=== PATIENT | male | born 1935 | race Caucasian/White ===

== ENCOUNTER 2017-09-24 17:05 | Inpatient (IN) | payer OTHER ==
[~2017-09-24] VITALS: Ht 152.4 cm; Wt 87.5 kg
[~2017-09-24 17:05] MED LIST: AMITRIPTYLINE H10 M3 PO; ASPIRIN325 PO; CARAFATE 1 GM TA1 G1 PO; COLACE100 MG PO; COZAAR 25 MG TA25 M2 PO; CYMBALTA60 MG PO; GABAPENTIN 100100 MG PO; HYDROCHLOROTHIA25 M2 PO; LEVAQUIN 500 M500 M2 PO; OMEPRAZOLE40 MG PO; SIMVASTATIN40 MG PO; ZANTAC 150MG T150 MG PO
[2017-09-24 17:09] VITALS: BP 156/86
[2017-09-24] MEDS ORDERED: VITAMIN D1000 UNI1 PO (17:19)
[2017-09-24] MEDS ORDERED: CALCIUM500 MG PO (17:19)
[2017-09-24] MEDS ORDERED: UNICOMPLEX M TA1 TA1 PO (17:19)
[2017-09-24] MEDS ORDERED: PROTONIX 20 MG20 M1 PO (17:19)
[2017-09-24] MEDS ORDERED: POTASSIUM99 M1 PO (17:19)
[2017-09-24] MEDS ORDERED: NORVASC5 MG PO (17:20)
[2017-09-24 17:35] LABS: ABSOLUTE BASOPHILS 0.1 thou/uL (0.0-0.2); ABSOLUTE EOSINOPHILS 0.1 thou/uL (0.0-0.7); ABSOLUTE LYMPHOCYTES 1.4 thou/uL (0.8-5.3); ABSOLUTE MONOCYTES 0.9 thou/uL (0.0-1.2); ABSOLUTE NEUTROPHILS 6.7 thou/uL (1.6-8.1); HEMATOCRIT 38.7 % (42.0-52.0); HEMOGLOBIN 13.3 gm/dL (14.0-18.0); LYMPHOCYTES 15.5 %; MCH 29.3 pg (26.0-34.0); MCHC 34.4 g/dL (28.0-37.0); MCV 85.1 fL (80.0-100.0); MONOCYTES 10.3 %; NUCLEATED RBCS 0 /100WBC; PLATELET COUNT* 186 thou/uL (150-400); POLYS 72.2 %; RBC 4.54 mil/uL (4.50-6.00); RDW-CV 14.6 % (10.5-14.5); WBC 9.2 thou/uL (4.0-11.0)
[2017-09-24 17:45] LABS: CALCIUM 9.9 mg/dL (8.5-10.1); CREATININE 1.9 mg/dL (0.6-1.3); POTASSIUM 3.5 mmol/L (3.5-5.1)
[2017-09-24 17:55] LABS: ALBUMIN 3.9 g/dL (3.4-5.0); TOTAL BILIRUBIN 0.6 mg/dL (<0.1-1.0); TROPONIN-I LEVEL 0.51 ng/mL (<0.06)
[2017-09-24 19:14] LABS: APTT 23.4 Seconds (25.0-31.3); INR 1.1; PROTIME 10.5 Seconds (9.20-11.50)
[2017-09-24 21:04] VITALS: BP 170/87
[2017-09-24 21:31] VITALS: BP 182/90
[2017-09-25] VITALS (19 sets, daily range): BP systolic 101–161; BP diastolic 48–89
--- NOTE | 2017-09-25 01:51 | NUR ---
ASSUMED CARE OF PT AT 2114. PT IS ALERT AND ORIENTED. PERRLA. GAIT IS WEAK AND UNSTEADY. PT REPORTED ONGOING CHEST PAIN EVEN THOUGH HEPARIN WAS INFUSING AND PT WAS GIVEN FENTANYL. PT REPORTED SOME RELIEF WITH NITRO. SO A NITRO PATCH WAS STARTED. PT HAS NOT COMPLAINED OF CHEST PAIN SINCE THEN. PT IS IN SINUS RYTHM ON THE TELEMETRY. PT IS RESTING COMFORTABLY IN BED. PT IS NPO FOR CATH PRECEDURE.
[2017-09-25 05:03] LABS: HEMATOCRIT 34.3 % (42.0-52.0); HEMOGLOBIN 11.7 gm/dL (14.0-18.0); MCV 85.4 fL (80.0-100.0); MPV 8.1 fl. (7.2-11.1); RBC 4.02 mil/uL (4.50-6.00); RDW-CV 14.5 % (10.5-14.5); WBC 6.4 thou/uL (4.0-11.0)
[2017-09-25 06:48] LABS: CHOLESTEROL 131 mg/dL (<200); HDL CHOLESTEROL 44 mg/dL (>40); LDL CHOLESTEROL 65 mg/dL (<100); TRIGLYCERIDE 111 mg/dL (<150); VLDL 22 mg/dL (<40)
[2017-09-25 06:55] LABS: SERUM ASSESSMENT Clear
--- NOTE | 2017-09-25 10:00 | NUR ---
RECEIVED PT CARE 0700. PATIENT IS ALERT AND ORIENTED X4. VSS. GRAIN SPOUTER TRACING SR WITH BBB. PATIENT DENIES ANY SOA. O2 SAT 98% ON 2L NC. C/O CHEST PAIN/PRESSURE UPON ASSESSMENT. PRN PAIN MEDICATION GIVEN WITH PARTIAL RELIEF. PLANS TO TAKE PATIENT TO THE HISTOLOGY MANAGER TODAY PER DR NOEL. AM ASSESSMENT CHARTED. MEDS PER MAR. PATIENT VOIDING PER URINAL. UP WITH ASSIST X1 IN ROOM WITH BATHROOM PRIVILEDGES. GAIT IS SLIGHTLY UNSTEADY. CONSENT SIGNED AND ON FRONT OF CHART FOR CARDIAC CATH. HEPARIN GTT INFUSING PER PROTOCOL AND NS INFUSING PRE CATH. CALL LIGHT WITHIN REACH. WILL CONTINUE TO MONITOR.
--- NOTE | 2017-09-25 11:30 | EKG ---
[place] [address] ELECTROCARDIOGRAM REPORT Name: VERA NIELSEN Room: [address] IN [facility]#: [id number] Admission: 09/24/17 Attend Phys: Ezekiel Cano MD Discharge: Date of : 35 Report #: [id number] THIS REPORT FOR: //name// [facility] ED Test Date: 2017-09-24 Test Time: 17:11:50 Pat Name: VERA NIELSEN Department: Room: Gender: M Student Union Consultant: Martine MCKEE : 1935 Requested By: Rah Melendez Order Number: [id number] MD: Veto Mai Measurements Intervals [place] Rate: 89 P: 49 TN: 196 QRS: -40 QRSD: 153 T: 52 QT: 409 QTc: 498 Interpretive Statements Sinus rhythm RBBB and LAFB Probable left ventricular hypertrophy Compared to ECG 03/09/2017 06:18:33 RIGHT BUNDLE BRANCH BLOCK now seen Prolonged QT interval no longer present Electronically Signed On 09-25-2017 11:30:29 CDT by Veto Mai [email or web address] <ELECTRONICALLY SIGNED> By: Veto Mai MD, FACC 09/25/17 1130 1711 1711 Veto Mai MD, [facility] /EPI
--- NOTE | 2017-09-25 11:38 | EKG ---
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
[2017-09-25] MEDS ORDERED: VITAMINC500 PO (12:20)
[2017-09-25] MEDS ORDERED: VITAMIN B-121000 MC3 PO (12:21)
[2017-09-25] MEDS ORDERED: COZAAR100 MG PO (12:49)
--- NOTE | 2017-09-25 15:14 | CARD ---
[address] [address] CARDIAC CATH REPORT Name: VERA NIELSEN Room: [address] IN [facility].#: [id number] Admission: 09/24/17 Attend Phys: Ezekiel Cano MD Discharge: Date of : 35 Report #: [id number] THIS REPORT FOR: //name// APPROVED REPORT Study performed: 09/25/2017 09:44:46 Patient Details Patient Status: In-Patient Room #: The patient is a 81 year-old male Event Personnel Anali Alatorre, Joyce Brady, Tana Monahan RN, Veto Mai Echo Tech Procedures Performed Art Access - R radial artery Left Heart Cath w/or w/o Coronaries [id number] [facility] Indication Abnormal ECG, Non-STEMI , Chest pain Risk Factors Hypercholesterolemia, Hypertension Previous Procedures/Diagnoses Previous CVA Procedure Narrative The patient was brought urgently to the Cardiac Catheterization Laboratory and was prepped and draped in a sterile manner. The right wrist was infiltrated with 2% Lidocaine subcutaneous anesthesia. A Slender Glidesheath sheath was inserted into the right radial artery. Coronary angiography was performed using coronary diagnostic catheters. The right coronary system was accessed and visualized with a Diagnostic catheter. The left coronary system was accessed and visualized with a Diagnostic catheter. The left ventricle was accessed and visualized with a Diagnostic catheter. Left ventricular/Aortic Valve gradient assessed via catheter pullback. Left ventriculogram was performed in SIMPSON projection. Closure device was deployed with a 6 Fr Vasc-Band Lng 27cm. The patient tolerated the procedure well and there were no complications associated with the procedure. There was no hematoma[place] [address] CARDIAC CATH REPORT Name: VERA NIELSEN Room: [address]#: [id number] Admission: 09/24/17 Attend Phys: Ezekiel Cano MD Discharge: Date of : 35 Report #: [id number] Sedation start time: 1035 Case end Time: 1106 Versed 2 mg Fluoro Time: 3.8 minutes Dose: 750.25 mGy Contrast Type and Amount: Visipaque 110 ml [place] Artery Percent Stenosis Left Main: 30 % Prox LAD: 0 % Mid/Distal LAD: 0 % Circumflex: 30 % RCA: 30 % Ramus: % Left Ventriculography The left ventricle is normal in size with normal contractility. The left ventricular ejection fraction is estimated to be 60-65%. Left ventricular wall motion abnormalities are not present. There is no mitral insufficiency. Hemodynamics The aortic pressure is 106/58 mmHg with a mean of 78 mmHg. The left ventricular end diastolic pressure is 5 mmHg. There was no gradient across the aortic valve upon pullback. Pullback from the left ventricle to the aorta revealed no gradient across the aortic valve. Conclusion 1. Mild cad 2. normal LV function Recommendations [facility] <ELECTRONICALLY SIGNED> By: Veto Mai MD, FACC 09/25/17 1514 1514 1514Dyonis Mai MD, FAC /INF
--- NOTE | 2017-09-25 19:17 | NUR ---
PATIENT PROGRESSING TOWARDS GOALS. POST CARDIAC CATH VITAL SIGNS STABLE. PATIENT VOIDING PER URINAL. UP WITH STANDBY ASSIST IN ROOM. HE IS TOLERATING HIS DIET WELL WITHOUT NAUSEA OR VOMITING. PLANNING FOR DC TOMORROW. HOURLY ROUNDING CHARTED. CALL LIGHT WITHIN REACH. WILL CONTINUE TO MONITOR.
--- NOTE | 2017-09-25 23:25 | NUR ---
ASSUMED CARE OF PT AT 1900. PT IS ALERT AND ORIENTED, VSS. PERRLA. NO COMPLAINTS OF PAIN. PT DENIES CHEST PAIN. PT IS IN SINUS RYTHM ON THE TELEMETRY. PT IS RESTING COMFORTABLY IN BED. RESPIRATIONS ARE EVEN AND NONLABORED. WILL CONTINUE TO MONITOR PT.
[2017-09-26 00:15] VITALS: BP 131/62
[2017-09-26 04:00] VITALS: BP 134/80
[2017-09-26 08:00] VITALS: BP 177/98
[2017-09-26] MEDS ORDERED: NITROGLYCERIN0.4 MG SUBLING (09:15)
[2017-09-26 12:14] VITALS: BP 165/83
[2017-09-26] MEDS ORDERED: TYLENOL325 MG PO (14:23)
--- NOTE | 2017-09-26 15:17 | NUR ---
PT DISCHARGED AT 1445 TO HOME. PT TRANSPORTED BY WHEELCHAIR ACCOMPANIED BY NURSING STAFF. PT'S SPOUSE PICKED UP. BELONGINGS ALL SENT WITH PATIENT. DISCHARGE PAPERWORK GONE OVER WITH PATIENT IN DETAIL. ASSESSMENT CHARTED. VSS THROUGHOUT THE SHIFT. HEADACHE PAIN RELIEVED WITH PRN PAIN MEDICATION.
--- NOTE | 2017-09-27 18:03 | CON ---
[address] [address] CONSULTATION Name: GIAVERA H Room: [address] IN ..#: [id number] Admission: 09/24/17 Attend Phys: Ezekiel Cano MD Discharge: 09/26/17 Date of : 35 Report #: [id number] THIS REPORT FOR: //name// CC: Ezekiel Johnston MD DATE OF SERVICE: 09/25/2017 HISTORY OF PRESENT ILLNESS: The patient is an 81-year-old white male who I was asked to see in the hospital today after he complained of chest pain. The patient states he had previous stroke affecting his left side. He was admitted to [facility] years ago as well as [facility]. He apparently did have heart catheterization in early at [facility] and showed no significant coronary artery disease. He had a treadmill test at [facility] years ago. This past June he actually underwent knee replacement at [facility] in [facility], which he tolerated well. He was actually admitted here to [facility] in February 2017 with chest pain. He underwent a nuclear stress test last February here at [facility]. He did complain of chest pain during Lexiscan infusion. Perfusion imaging showed no ischemia. There is diaphragmatic attenuation of the inferior wall, felt to be a low-risk study. Medical therapy was recommended. The patient states he did well until the past few days. He has been having intermittent chest pain. It is not necessarily related to exertion or meals. It goes into his left arm. It can make him short of breath, diaphoretic, but no nausea. It is not related to food. He has had a cough, but no fever. The pain is not related to coughing. He denies rash on his chest. He does get short of breath with exertion. He notes occasional fluttering, but no syncope. His finally brought him to the hospital last night. He was admitted for further evaluation and treatment. PAST MEDICAL HISTORY: Significant for multiple procedures including obtaining a PFO closure device at [facility] following his stroke. He has had DVT and had an IVC filter placed. He has had previous cholecystectomy, prostate surgery here at [facility], hernia repair, ankle surgery. He has had an EGD, carpal tunnel surgery, colonoscopy at [place]. He had a blood clot in his right leg in 2016. CURRENT MEDICATIONS: Include aspirin, Cymbalta, Neurontin, Protonix, ranitidine, simvastatin, sucralfate, hydrochlorothiazide, amlodipine. ALLERGIES: He has no known drug allergies. He does use CPAP. FAMILY HISTORY: His father had heart disease. SOCIAL HISTORY: He is , lives with his in [place]. 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 [place] [address] CONSULTATION Name: VERA NIELSEN Room: [address]#: [id number] Admission: 09/24/17 Attend Phys: Ezekiel Cano MD Discharge: 09/26/17 Date of : 35 Report #: [id number] REVIEW OF SYSTEMS: He has had no history of stroke. He has had a history of gastroesophageal reflux. No liver disease. He has had kidney stones. No cancer, no psychiatric illness. PHYSICAL EXAMINATION: GENERAL: Revealed an elderly male in no distress. VITAL SIGNS: He had a blood pressure of 140/80, pulse 60. He is afebrile. HEENT: He was anicteric. Conjunctivae pink. Mucous membranes moist. NECK: Veins nondistended. Right carotid bruit was heard. CHEST: Clear to auscultation. CARDIOVASCULAR: Regular rate and rhythm. No significant murmur. ABDOMEN: Soft, nontender, no masses were palpated. EXTREMITIES: Had no edema. Dorsalis pedis pulse 2+ bilaterally. SKIN: Warm, dry. NEUROLOGIC: Nonfocal. RADIOLOGICAL DATA: ECG shows a sinus rhythm, leftward axis, nonspecific ST-segment changes. He had previous workup in the Emergency Room that included a portable chest x-ray that showed normal heart size, clear lung gant. He had a V/Q scan of the lungs done last night that showed low probability for pulmonary embolus. Carotid MRA was done last February that showed normal common carotid, normal right carotid bifurcation, plaque in the left carotid. LAB WORK: Sodium 140, BUN 31, creatinine 1.9. His troponin was 0.51 on admission. This morning is up to 0.62. His cholesterol 131, LDL 65. White blood cell count 6.4, hemoglobin 11.4. IMPRESSION AND RECOMMENDATIONS: 1. Non-ST elevation myocardial infarction. Recommend cardiac catheterization. 2. Hypertension. The patient is on a diuretic and calcium jesus. 3. Hyperlipidemia. The patient is on a statin drug. 4. Previous stroke. The patient has had a PFO closure in the past, transcatheter. He currently has a closure device in place. 5. History of deep venous thrombosis. The patient has a filter in place. 6. Sleep apnea. The patient uses CPAP. 7. Recent knee surgery. 8. History of reflux. <ELECTRONICALLY SIGNED> By: Veto Mai MD, [facility] 09/27/17 2024 0912 1339David Louise Mai MD, [facility] /nt
== END 2017-09-26 14:45 | disposition still patient (30) | DRG 281 ==
LOC: M.ERS 17:05 → M.TBA-ER 18:28 → M.2W 20:03
PROVIDERS: Emergency Medicine Emergency Medical Services; ADMIT Internal Medicine
DX: I21.4 Non-ST elevation (NSTEMI) myocardial infarction (principal); I48.92 Unspecified atrial flutter; D68.59 Other primary thrombophilia; E78.5 Hyperlipidemia, unspecified; G40.909 Epilepsy, unspecified, not intractable, without status epilepticus; M47.896 Other spondylosis, lumbar region; K21.9 Gastro-esophageal reflux disease without esophagitis; I25.10 Atherosclerotic heart disease of native coronary artery without angina pectoris; N18.3 Chronic kidney disease, stage 3 (moderate); I12.9 Hypertensive chronic kidney disease with stage 1 through stage 4 chronic kidney disease, or unspecified chronic kidney disease; N40.0 Benign prostatic hyperplasia without lower urinary tract symptoms; I65.22 Occlusion and stenosis of left carotid artery; Z79.82 Long term (current) use of aspirin; Z86.73 Personal history of transient ischemic attack (TIA), and cerebral infarction without residual deficits; Z87.442 Personal history of urinary calculi; Z90.49 Acquired absence of other specified parts of digestive tract; Z95.828 Presence of other vascular implants and grafts; Z82.49 Family history of ischemic heart disease and other diseases of the circulatory system; Z86.718 Personal history of other venous thrombosis and embolism; Z79.899 Other long term (current) drug therapy

== ENCOUNTER 2021-05-15 09:12 | Emergency (ER) | payer OTHER ==
[~2021-05-15] VITALS: Ht 182.9 cm; Wt 87.5 kg
[~2021-05-15 09:12] MED LIST changes: +CALCIUM500 MG PO; +COZAAR100 MG PO; +NITROGLYCERIN0.4 MG SUBLING; +NORVASC5 MG PO; +POTASSIUM99 M1 PO; +PROTONIX 20 MG20 M1 PO; +TYLENOL325 MG PO; +UNICOMPLEX M TA1 TA1 PO; +VITAMIN B-121000 MC3 PO; +VITAMIN D1000 UNI1 PO; +VITAMINC500 PO
[2021-05-15] MEDS ORDERED: TRAZODONE HCL100 MG PO ×2 (22:38)
== END 2021-05-15 10:15 | disposition left against medical advice (07) ==
LOC: M.ERS 09:12
DX: R07.89 Other chest pain (principal); Z53.21 Procedure and treatment not carried out due to patient leaving prior to being seen by health care provider

== ENCOUNTER 2021-05-15 15:59 | Observation (INO) | payer OTHER ==
[~2021-05-15] VITALS: Ht 182.9 cm; Wt 88.0 kg
[2021-05-15 16:00] VITALS: BP 189/109
--- NOTE | 2021-05-15 16:31 | EKG ---
[place] [address] ELECTROCARDIOGRAM REPORT Name: VEAR NIELSEN Room: [facility]#: [id number] Admission: 05/15/21 Attend Phys: Discharge: Date of : 35 Date of Service: 05/15/21 0918 Report #: [id number] THIS REPORT FOR: //name// [facility] ED Test Date: 2021-05-15 Test Time: 09:18:57 Pat Name: VERA NIELSEN Department: Room: Gender: Service Technician: : 1935 Requested By: Mina Martinez Order Number: [id number] MD: Veto Mai Measurements Intervals [place] Rate: 76 P: -24 MI: 109 QRS: -73 QRSD: 160 T: 104 QT: 456 QTc: 513 Interpretive Statements A-V dual-paced rhythm with some inhibition No further analysis attempted due to paced rhythm Compared to ECG 09/25/2017 08:54:31 Sinus rhythm no longer present paced rhytm is now noted present Electronically Signed On 05-15-2021 16:30:48 ARCHIVIST ECONOMIC HISTORY by Veto Mai [email or web address] <ELECTRONICALLY SIGNED> By: Veto Mai MD, [facility] 05/15/21 1630 0918 7 Veto Mai MD, [facility] /EPI
[2021-05-15 16:32] LABS: ABSOLUTE EOSINOPHILS 0.1 thou/uL (0.0-0.7); ABSOLUTE LYMPHOCYTES 1.3 thou/uL (0.8-5.3); ABSOLUTE MONOCYTES 0.7 thou/uL (0.0-1.2); ABSOLUTE NEUTROPHILS 4.1 thou/uL (1.6-8.1); BASOPHILS 0.8 %; HEMATOCRIT 36.6 % (42.0-52.0); HEMOGLOBIN 12.6 gm/dL (14.0-18.0); LYMPHOCYTES 20.2 %; MCH 30.3 pg (26.0-34.0); MCHC 34.4 g/dL (28.0-37.0); MCV 87.9 fL (80.0-100.0); MONOCYTES 11.8 %; MPV 7.5 fl. (7.2-11.1); NUCLEATED RBCS 0 /100WBC; PLATELET COUNT* 172 thou/uL (150-400); POLYS 65.2 %; RBC 4.16 mil/uL (4.50-6.00); RDW-CV 14.1 % (10.5-14.5); WBC 6.3 thou/uL (4.0-11.0)
[2021-05-15 16:39] LABS: CALCIUM 8.2 mg/dL (8.5-10.1); CREATININE 1.1 mg/dL (0.6-1.3); POTASSIUM 3.9 mmol/L (3.5-5.1)
[2021-05-15 16:41] LABS: APTT 31.9 Seconds (25.0-31.3); INR 2.1; PROTIME 20.6 Seconds (9.20-11.50)
[2021-05-15 16:53] LABS: ALBUMIN 3.1 g/dL (3.4-5.0); CK-MB MASS 1.8 ng/mL (<0.5-3.6); MAGNESIUM 1.9 mg/dL (1.8-2.4); TOTAL BILIRUBIN 0.4 mg/dL (<0.1-1.0); TOTAL PROTEIN 6.1 g/dL (6.4-8.2)
[2021-05-15 21:20] VITALS: BP 178/65
[2021-05-15] MEDS ORDERED: TRAZODONE HCL100 MG PO ×2 (22:38)
--- NOTE | 2021-05-16 09:46 | NUR ---
Pt is admitted to the hospital on 05/15/21 for chest pain/elevated troponin level. Called - ellen Allen at: [phone] to complete assessment. Pt lives with his in a duplex with no stairs to enter. Pt was previously independent in ADL's and utilized a cane for mobility. Has a hx of HH with [facility]. No hx of ARU/SNF. Pt fills his prescriptions at the [facility] grocery store, and last saw his PCP in April of 2021. reports they have completed DPOA paperwork and has agreed to bring a copy to the hospital.
[2021-05-16 10:00] VITALS: BP 152/77
[2021-05-16 10:12] VITALS: BP 152/77
[2021-05-16 10:15] VITALS: BP 152/77
[2021-05-16 10:21] VITALS: BP 152/77
--- NOTE | 2021-05-16 11:14 | EKG ---
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: : 1935 Requested By: Mina Martinez Order Number: [id number] MD: Veto Mai Measurements Intervals [place] Rate: 70 P: 14 [place]: 203 QRS: -77 QRSD: 158 T: 101 QT: 467 QTc: 504 Interpretive Statements Atrial-ventricular dual-paced rhythm No further analysis attempted due to paced rhythm Baseline wander in lead(s) III,V3 Compared to ECG 05/15/2021 09:18:57 No significant changes Electronically Signed On 05-16-2021 11:13:34 VOTATOR MACHINE OPERATOR by Veto Mai [email or web address] <ELECTRONICALLY SIGNED> By: Veto Mai MD, [facility] 05/16/21 1113 1609 1609 Veto Mai MD, [facility] /EPI
--- NOTE | 2021-05-18 10:24 | CON ---
[address] [address] CONSULTATION Name: VERA NIELSEN Room: [address] Araceli Jason#: [id number] Admission: 05/15/21 Attend Phys: Calderon Chang Discharge: 05/16/21 Date of : 35 Report #: [id number] THIS REPORT FOR: cc: Quang aDo MD, Dirk R. MD Blick, David R. MD [facility] ~ DATE OF CONSULTATION: 05/16/2021 CARDIOLOGY CONSULTATION HISTORY OF PRESENT ILLNESS: The patient is an 85-year-old white male who I was asked to see in the Emergency Room today after he complained of chest pain. The patient has a long and extensive past medical history. His first cardiac catheterization was apparently done at [facility] several years ago that showed no significant coronary artery disease. I actually performed repeat cardiac catheterization here at [place] in 09/2017 from the radial artery that showed ejection fraction of 60-65%. There was minimal plaque formation with a 30% narrowing of the circumflex and right coronary artery. It was felt that his chest pain was noncardiac. The patient has a history of atrial fibrillation. He eventually underwent placement of a pacemaker at [facility] in the past. He continues to see the prepress specialist at [facility]. He is not very active at this time and uses a cane. He notes for the past 2 days, he has had a constant, sharp pain on the left side of his chest. It is not related to exertion, meals, he has had no trauma to the chest, denied any rash. He also notes some tingling of his left arm, but denied any swelling. He has had no bleeding, fever or cough. He finally called the ambulance yesterday and was brought here to [facility] for further evaluation and treatment. He does note some exertional dyspnea; notes occasional skipped heartbeat, but no prolonged palpitations or syncope. He has had no bleeding. PAST MEDICAL HISTORY: He has had cataract extraction, appendectomy, hernia repair, bilateral knee surgery, cholecystectomy. He has a history of neuropathy, orthostatic hypotension. He has had a history of DVT and PE, he has been chronically anticoagulated. CURRENT MEDICATIONS: Consist of warfarin, carvedilol, lisinopril, Lipitor, Neurontin, hydrochlorothiazide, Prilosec. ALLERGIES: He has no known drug allergies. FAMILY HISTORY: His father had heart disease. SOCIAL HISTORY: He is . He and his live in [place]. No smoking, [place] [address] CONSULTATION Name: CAMILLE NIELSENWELL Evan Room: [address] Araceli Jason#: [id number] Admission: 05/15/21 Attend Phys: Calderon Chang Discharge: 05/16/21 Date of : 35 Report #: [id number] REVIEW OF SYSTEMS: He apparently has had a previous stroke affecting the left side of his body. No history of asthma. He has chronic kidney disease. He sees a bonbon cream warmer. No cancer. No previous history of depression. No chronic skin condition. PHYSICAL EXAMINATION: GENERAL: Revealed an elderly male, lying in bed. He appeared in no distress. VITAL SIGNS: He had a blood pressure 170/68, pulse 60, he is afebrile. HEENT: He was anicteric. Conjunctivae are pink. Mucous membranes moist. NECK: Veins do not appear distended. There are no carotid bruits. CHEST: Clear to auscultation. CARDIAC: Regular rate and rhythm. Grade 2 systolic ejection murmur. ABDOMEN: Soft. EXTREMITIES: Had no pitting edema. Dorsalis pedis pulse 3+ bilaterally. SKIN: Cool and dry. NEUROLOGIC: Nonfocal. DIAGNOSTIC DATA: His ECG on admission showed an AV sequentially paced rhythm. There was no intrinsic beats noted. His workup in the Emergency Room last night; he had a portable chest x-ray that showed normal heart size, clear lung gant. LAB WORK: Creatinine 1.1. Liver function studies were normal. High sensitivity troponin was 14. BNP 505. His INR was 2.1. His hematocrit was 36.6. His COVID antigen stat test was negative. IMPRESSION AND RECOMMENDATIONS: 1. Chest pain. Atypical for angina. The patient has had 2 previous heart catheterization that showed no significant coronary artery disease. No evidence of acute myocardial infarction. I suspect his chest pain is noncardiac. I think it is safe to discharge the patient from the Emergency Room. I would not recommend stress testing at this time. 2. History of atrial fibrillation. The patient is chronically anticoagulated, currently is atrial paced. 3. Sick sinus syndrome. The patient has a pacemaker in place. 4. History of neuropathy. 5. Hypertension. The patient is on an ARB and diuretic. 6. History of deep venous thrombosis and pulmonary embolism. The patient is chronically anticoagulated. I would continue warfarin, maintaining INR of 2-3. 7. Degenerative joint disease. 8. Previous stroke. The patient did have a carotid Doppler study here at [facility] in 2018 that showed less than 50% stenosis of the right carotid artery [address] [place] [address] CONSULTATION Name: VERA NIELSEN Room: [address] Araceli Jason#: [id number] Admission: 05/15/21 Attend Phys: Calderon Chang Discharge: 05/16/21 Date of : 35 Report #: [id number] and no significant stenosis of the left carotid artery. The patient is chronically anticoagulated. <ELECTRONICALLY SIGNED> By: Veto Mai MD, [facility] 05/18/21 1024 0739 0828Davicici Mai MD, [facility] /nt
== END 2021-05-16 10:15 | disposition home or self-care (01) ==
LOC: M.ERS 15:59 → M.TBA-ER 17:24
PROVIDERS: Emergency Medicine; ADMIT Internal Medicine; ATTEND Internal Medicine
DX: R07.89 Other chest pain (principal); Z20.822 Contact with and (suspected) exposure to COVID-19; G40.909 Epilepsy, unspecified, not intractable, without status epilepticus; F41.9 Anxiety disorder, unspecified; I25.2 Old myocardial infarction; I10 Essential (primary) hypertension; I48.92 Unspecified atrial flutter; G47.33 Obstructive sleep apnea (adult) (pediatric); Z79.82 Long term (current) use of aspirin; Z79.899 Other long term (current) drug therapy; Z86.73 Personal history of transient ischemic attack (TIA), and cerebral infarction without residual deficits